=== PATIENT | male | born 1960 | race Caucasian/White ===

== ENCOUNTER 2021-09-03 14:34 | Emergency (ER) | payer MEDICAID, SELFPAY ==
[~2021-09-03] VITALS: Ht 154.9 cm; Wt 74.8 kg
[~2021-09-03 14:34] MED LIST: ASPI-524 PO; LIP40 PO; LISI10TA29 PO; METF-380 PO
[2021-09-03 14:53] VITALS: BP_SYST 150
--- NOTE | 2021-09-03 15:00 | NUR ---
SENT TO [facility]
== END 2021-09-03 16:00 | disposition left against medical advice (07) ==
LOC: SED 14:34
DX: I10 Essential (primary) hypertension (principal); Z53.21 Procedure and treatment not carried out due to patient leaving prior to being seen by health care provider